=== PATIENT | female | born 1990 | race American Indian/Alaskan Native ===

== ENCOUNTER 2017-03-15 03:22 | Emergency (ER) | payer SELFPAY ==
[~2017-03-15] VITALS: Ht 160 cm; Wt 63.5 kg
[2017-03-15 04:17] LABS: Basophils # (auto) 0 uL; Basophils % (auto) 0.5 % (0.0-2.0); CONDITION Y; Eosinophils # (auto) 0.2 uL; Eosinophils % (auto) 2.3 % (0.0-7.0); Hematocrit 39.8 % (36.0-46.0); Hemoglobin 13.2 g/dL (12.2-16.2); Lymphocytes # (auto) 3.4 uL; Lymphocytes % (auto) 45.2 % (10.0-50.0); Mean Corpuscular Hgb Conc. 33.2 g/dL (32.0-36.0); Mean Corpuscular Volume 90.6 fL (80.0-100.0); Mean Platelet Volume 8.3 fL (7.4-10.4); Monocytes # (auto) 0.7 uL; Monocytes % (auto) 8.9 % (0.0-12.0); Neutrophils # (auto) 3.2 uL; Neutrophils % (auto) 43.1 % (37.0-80.0); Platelet Count (auto) 386 10^3/uL (140-450); Red Cell Distribution Width 16.1 % (11.6-16.0); White Blood Cell 7.4 10^3/uL (4.4-10.8)
[2017-03-15 04:35] LABS: Urine Bilirubin Negative (Negative); Urine Blood Negative /uL (Negative); Urine Color Yellow (Yellow); Urine Glucose Normal (Normal); Urine Ketone Negative (Negative); Urine Nitrite Negative (Negative); Urine RBC <1 /hpf (0 - 4); Urine Squamous Epithelial Cell FEW /hpf (<5); Urine Urobilinogen Normal (Negative); Urine pH 7.5 (5.0-8.0)
[2017-03-15 04:41] LABS: Potassium 4.1 mmol/L (3.5-5.1)
[2017-03-15 04:49] LABS: BUN/Creatinine Ratio 14.8; Calcium 8.7 mg/dL (8.5-10.1)
[2017-03-15 04:51] LABS: Bilirubin, Total 0.2 mg/dL (0.2-1.0); Total Protein 8.3 g/dL (6.4-8.2)
[2017-03-15] MEDS ORDERED: KETOROLAC TROMETH 60MG/2ML VIAL IM ONE (07:15)
[2017-03-15 07:17] VITALS: BP 124/78
== END 2017-03-15 07:36 | disposition home or self-care (01) ==
LOC: ER 03:26
DX: K04.7 Periapical abscess without sinus (principal); R19.7 Diarrhea, unspecified; F17.210 Nicotine dependence, cigarettes, uncomplicated
CPT/HCPCS: 36415; 80053; 81001; 84702; 85025; 96372; 99284; J1885